=== PATIENT | male | born 1965 | race Caucasian/White ===

== ENCOUNTER 2017-02-13 20:29 | Emergency (ER) | payer MEDICARE, MEDICAID ==
[2017-02-13] MEDS ORDERED: HEPARIN SODIUM 1000 UNIT/1 ML 10ML VIAL IVP ONE (20:42)
[2017-02-13] MEDS ORDERED: ASPIRIN 81 MG CHEWABLE TABLET PO ONE (20:42)
[2017-02-13] MEDS ORDERED: NITROGLYCERIN/D5W 50 MG in DEXTROSE 5 % IN WATER 1 BAG IV SCH ×2 (20:45)
--- NOTE | 2017-02-13 20:48 | Emergency Department Record ---
History of Present Illness - General Chief Complaint: Chest Pain Stated Complaint: CHEST TIGHTNESS, PAIN IN BOTH ARMS Time Seen by Provider: 02/13/17 20:30 Source: Patient Mode of Arrival: Ambulatory Limitations: No limitations - History of Present Illness Initial Comments: 51 yo male presents to ED with a CC of chest discomfort that began approximately 45 minutes [employer], reports similar symptoms on and off for 1 month, worse tonight. Patient denies previous heart or lung problems, but reports a history of DM and smoking half-pack/day. MD Complaint: Chest pain Onset/Timin -: Minutes(s) Onset: During rest Pain Location: Substernal Pain Radiation: RUE, LUE Severity: Moderate Quality: Aching, Heaviness Consistency: Constant Improves With: Nothing Worsens With: Nothing Anginal Symptoms: Diaphoresis - Related Data Home Medications Medication Instructions Recorded Confirmed Last Taken Hydrocodone/Acetaminophen [[employer] 1 tab PO Q6H PRN 08/05/16 02/13/17 02/13/17 10mg/325mg] Metformin HCl 500 mg PO BID 08/05/16 02/13/17 02/13/17 Pravastatin Sodium [Pravachol] 20 mg PO DAILY 08/05/16 02/13/17 02/13/17 Sitagliptin Phosphate [Januvia] 50 mg PO DAILY 08/05/16 02/13/17 02/13/17 Previous Rx's Medication Instructions Recorded Diazepam [Valium] 5 mg PO Q8H #10 tab 08/05/16 Allergies Allergy/AdvReac Type Severity Reaction Status Date / Time codeine Allergy RASH Verified 02/13/17 20:38 duloxetine HCl Allergy SWELLING Verified 02/13/17 20:38 [From Cymbalta] (GENERAL) Review of Systems Constitutional: Denies: Chills, Fever, Malaise, Night sweats Eyes: Denies: Eye discharge, Eye pain ENT: Denies: Congestion, Ear pain, Epistaxis Respiratory: Denies: Cough, Dyspnea Cardiovascular: Reports: Chest pain. Denies: Dyspnea on exertion, Palpitations , Syncope Endocrine: Denies: Fatigue, Heat or cold intolerance Gastrointestinal: Denies: Abdominal pain, Nausea, Vomiting Genitourinary: Denies: Incontinence, Retention Musculoskeletal: Denies: Arthralgia, Back pain, Gout, Joint swelling Skin: Denies: Bruising, Change in color, Change in hair/nails, Rash Neurological: Denies: Abnormal gait, Confusion, Headache, Seizure Psychiatric: Denies: Anxiety Hematological/Lymphatic: Denies: Anemia, Blood Clots Past Medical History - SOCIAL HISTORY Smoking Status: Current every day smoker Drug Use: None - RESPIRATORY Hx Respiratory Disorders: No - CARDIOVASCULAR Hx Cardio Disorders: No Comment:: high cholesterol - NEURO Hx Neuro Disorders: No - GI Hx GI Disorders: No - Hx Genitourinary Disorders: No - ENDOCRINE Hx Endocrine Disorders: Yes Hx Diabetes: Yes - MUSCULOSKELETAL Hx Musculoskeletal Disorders: Yes Comment:: DDD, scoliosis, stenosis - PSYCH Hx Psych Problems: No - HEMATOLOGY/ONCOLOGY Hx Hematology/Oncology Disorders: No Physical Exam - General General Appearance: Alert, Oriented x3, Cooperative, Moderate distress, Other ( appears diaphoretic on examination) Limitations: No limitations - Head Head exam: Atraumatic, Normocephalic, Normal inspection Head exam detail: negative: Abrasion, Contusion, Shepard's sign, General tenderness, Hematoma, Laceration - Eye Eye exam: Normal appearance. negative: Conjunctival injection, Periorbital swelling, Periorbital tenderness, Scleral icterus - ENT Ear exam: negative: Auricular hematoma, Auricular trauma Nasal Exam: negative: Active bleeding, Discharge, Dried blood, Foreign body Mouth exam: negative: Drooling, Laceration, Muffled voice, Tongue elevation - Neck Neck exam: Normal inspection. negative: Meningismus, Tenderness - Respiratory Respiratory exam: Normal lung sounds bilaterally. negative: Rales, Respiratory distress, Rhonchi, Stridor - Cardiovascular Cardiovascular Exam: Regular rate, Normal rhythm, Normal heart sounds - GI/Abdominal GI/Abdominal exam: Soft. negative: Rebound, Rigid, Tenderness - Rectal Rectal exam: Deferred - exam: Deferred - Extremities Extremities exam: Normal inspection. negative: Calf tenderness, Pedal edema, Tenderness - Back Back exam: Denies: CVA tenderness (R), CVA tenderness (L) - Neurological Neurological exam: Alert, Normal gait, Oriented X3 - Psychiatric Psychiatric exam: Normal affect, Normal mood - Skin Skin exam: Normal color. negative: Abrasion Type of lesion: negative: abrasion Course - Reevaluation(s) Reevaluation #1: 02/13/17 20:43 EKG: NSR [address] elevation II, III, AVF, ST depression V1-V2 NO PREVIOUS AVAILABLE Dr. Toro paged for consultation re: STEMI. 02/13/17 20:54 Reevaluation #2: 02/13/17 20:48 Case was discussed with Dr. Toro, will accept for transfer for STEMI. 02/13/17 20:54 Medical Decision Making - Lab Data Result diagrams: 02/13/17 20:45 02/13/17 20:45 Disposition Disposition: Transfer Clinical Impression: STEMI (ST elevation myocardial infarction) Qualifiers: Involved coronary artery: other inferior wall coronary artery Qualified Code(s) : I21.19 - ST elevation (STEMI) myocardial infarction involving other coronary artery of inferior wall Disposition: Acute Care Hospital Transfer Transfer To: [facility] Reason For Transfer: STEMI Accepting Physician: Muna Time Discussed w/Accepting Physician: 20:49 Condition: (2) Stable Forms: Patient Portal Access Time of Disposition: 20:49
[2017-02-13 20:50] LABS: BASO % 0.7 % (0-6); EOS % 1.2 % (0-6); GRAN % 44.9 % (47-80); HEMATOCRIT 49.9 % (42.0-52.0); HEMOGLOBIN 16.7 gm/dl (14.0-18.0); MEAN CELL VOLUME 92.6 fl (81-97); MEAN CORPUSCULAR HGB CONC 33.5 g/dl (32-36); MEAN PLATELET VOLUME 10.2 fl (7.4-10.4); MONO % 8.2 % (0-9); PLATELET COUNT 249 K/uL (130-400); RED BLOOD COUNT 5.39 M/uL (4.40-5.70); RED CELL DISTRIBUTION WIDTH 13.5 % (11.5-14.5); WHITE BLOOD COUNT W/O DIFF 8.3 K/uL (4.2-12.2)
[2017-02-13 21:00] LABS: ALB/GLOB RATIO 1.7 (1.1-1.8); ALBUMIN 4.9 gm/dL (3.5-5.0); ALKALINE PHOSPHATASE 133 U/L (38-126); ALT/SGPT 42 U/L (21-72); AST/SGOT 28 U/L (17-59); BILIRUBIN,TOTAL 0.39 mg/dL (0.2-1.3); BLOOD UREA NITROGEN 19 mg/dL (9-20); CREATINE PHOSPHOKINASE 131 U/L (55-170); CREATININE 0.8 mg/dL (0.66-1.25); EST GLOMERULAR FILTRATION RATE > 60 ml/min; GLUCOSE,RANDOM 186 mg/dL (70-110); TOTAL PROTEIN 7.8 gm/dL (6.3-8.2)
[2017-02-13 21:11] LABS: TROPONIN I 0.083 ng/mL (0.00-0.034)
== END 2017-02-13 21:05 | disposition short-term general hospital (02) ==
LOC: ER 20:29
DX: I21.19 ST elevation (STEMI) myocardial infarction involving other coronary artery of inferior wall (principal); F17.210 Nicotine dependence, cigarettes, uncomplicated; E11.9 Type 2 diabetes mellitus without complications; Z79.84 Long term (current) use of oral hypoglycemic drugs
CPT/HCPCS: 80053; 82550; 84484; 85025; 93005; 93010; 96374; 96375; 99285